=== PATIENT | male | born 1960 | race Caucasian/White ===

== ENCOUNTER → 2020-10-27 | Outpatient (CLI) | payer OTHER | END | disposition home or self-care (01) | LOC: COVID19 14:04 | PROVIDERS: ATTEND Internal Medicine Critical Care Medicine | DX: Z20.822 Contact with and (suspected) exposure to COVID-19 (principal); R91.1 Solitary pulmonary nodule ==

== ENCOUNTER → 2020-10-31 | Day surgery (SDC) | payer OTHER ==
[~2020-10-31] VITALS: Ht 170.1 cm; Wt 71.2 kg
[2020-10-31 08:58] VITALS: BP 119/78
[2020-10-31 10:24] VITALS: BP 102/72
[2020-10-31 10:34] VITALS: BP 100/73
[2020-10-31 10:54] VITALS: BP 115/64
[2020-10-31 12:30] LABS: BF LYMPHOCYTES 4 %; BF MONOCYTES 4 %
[2020-10-31 12:31] LABS: BF NEUTROPHILS 48 %
[2020-10-31 12:33] LABS: BF MACROPHAGES 20 %
[2020-11-01 13:10] LABS: ACID FAST SPEC PROCESSING Concentration (.)
[2020-12-15 12:06] LABS: ACID FAST CULTURE Negative (.)
== END ==
LOC: SDC 10-27 08:45
PROVIDERS: ATTEND Internal Medicine Critical Care Medicine
DX: R91.1 Solitary pulmonary nodule (principal)